=== PATIENT | female | born 1950 | race Two or more races ===

== ENCOUNTER 2017-04-12 06:31 | Day surgery (SDC) | payer OTHER ==
[~2017-04-12] VITALS: Ht 154.9 cm; Wt 104.0 kg
[~2017-04-12 06:31] MED LIST: SODIUM CHLORIDE 0.9% 1,000 ML IV ONE
[2017-04-12] MEDS ORDERED: SODIUM CHLORIDE 0.9% 1,000 ML IV ONE (06:46)
[2017-04-12] MEDS ORDERED: CHOL50004 PO (06:53)
[2017-04-12] MEDS ORDERED: VITAD1000 PO (06:53)
[2017-04-12] MEDS ORDERED: BENA20 PO (06:53)
[2017-04-12] MEDS ORDERED: FAMO20 PO (06:53)
[2017-04-12] MEDS ORDERED: MONT10TA21 PO (06:53)
[2017-04-12] MEDS ORDERED: LINA5TAB PO (06:53)
[2017-04-12] MEDS ORDERED: DULO30CA2 PO (06:53)
[2017-04-12] MEDS ORDERED: ASPI81 PO (06:53)
[2017-04-12] MEDS ORDERED: CARV12 PO (06:53)
[2017-04-12] MEDS ORDERED: FURO40 PO (06:53)
[2017-04-12] MEDS ORDERED: ROSU20 PO (06:53)
[2017-04-12] MEDS ORDERED: INSLAN SQ (07:15)
[2017-04-12] MEDS ORDERED: INSNOV SQ (07:15)
[2017-04-12] MEDS ORDERED: MIDAZOLAM HCL 2 MG/2 ML VIAL ONE (07:26)
[2017-04-12] MEDS ORDERED: FentaNYL CITRATE-PF 100 MCG/2 ML VIAL ONE (07:26)
[2017-04-12 07:41] LABS: GLUCOSE,POINT OF CARE 225 MG/DL (70-110)
[2017-04-12] MEDS ORDERED: MethylPREDNISolone SOD SUCC 125 MG/2 ML VIAL IVP ONE (09:00)
[2017-04-12] MEDS ORDERED: MethylPREDNISolone SOD SUCC 125 MG/2 ML VIAL ONE (09:09)
[2017-04-12] MEDS ORDERED: LIDOCAINE HCL 2% 30 ML JELLY TP ONE (17:11)
[2017-04-12] MEDS ORDERED: BENZOCAINE 20% 50 MCG/SPRAY 57 GM TP ONE (17:11)
[2017-04-12] MEDS ORDERED: EPINEPHrine 1:1,000 [1 MG/ML] AMP IM ONE (17:11)
[2017-04-12] MEDS ORDERED: ALBUTEROL SULFATE 2.5 MG/0.5 ML NEB SOLUTION NEB ONE (17:11)
[2017-04-12] MEDS ORDERED: LIDOCAINE HCL 4% 50 ML SOLUTION TP ONE (17:11)
[2017-04-12] MEDS ORDERED: OXYGEN THERAPY IH SCH (20:00)
== END 2017-04-12 10:14 | disposition home or self-care (01) ==
LOC: SURGERY 06:31
PROVIDERS: ATTEND Internal Medicine Critical Care Medicine
DX: J38.4 Edema of larynx (principal); B37.0 Candidal stomatitis; E11.9 Type 2 diabetes mellitus without complications; Z79.4 Long term (current) use of insulin; Z79.01 Long term (current) use of anticoagulants; Z88.8 Allergy status to other drugs, medicaments and biological substances; Z90.710 Acquired absence of both cervix and uterus; Z90.49 Acquired absence of other specified parts of digestive tract; Z95.1 Presence of aortocoronary bypass graft
CPT/HCPCS: 31623; 31624; 71010; 82962; 87015 ×2; 87070; 87101; 87147; 87205; 87220; 88108; 88312; 93005; J0171; J2250; J2930; J3010; J7030